=== PATIENT | female | born 1985 | race Caucasian/White ===

== ENCOUNTER 2020-06-06 09:40 | Outpatient (REF) | payer OTHER, SELFPAY | END 2020-06-06 09:41 | disposition home or self-care (01) | LOC: HO.LAB 09:40 | PROVIDERS: Visit Provider Internal Medicine | DX: Z20.828 Contact with and (suspected) exposure to other viral communicable diseases (principal) | CPT/HCPCS: C9803; U0003 ==

== ENCOUNTER 2020-07-17 08:05 | Outpatient (REF) | payer OTHER, SELFPAY ==
[2020-07-17 11:51] LABS: Hematocrit 40.3 % (37-47); Hemoglobin 13.3 g/dl (12.0-16.0); Mean Corpuscular Hemoglobin 29.9 pg (27.0-33.0); Mean Corpuscular Volume 90.6 fL (80-98); Mean Platelet Volume 11.9 fL (9.4-12.3); Platelet Count 178 X10*3/uL (160-400); Red Blood Count 4.45 X10*6/uL (4.20-5.50); Red Cell Distribution Width 13.9 % (11.0-16.0); White Blood Count 6.5 X10*3/uL (4.8-10.8)
[2020-07-17 12:08] LABS: Glucose Urine UA NEG (NEG); Leukocyte Esterase Urine NEG (NEG); Nitrite Urine NEG (NEG); PH 6.5 (5.0-8.0); Urine Blood NEG (NEG); Urine Ketones NEG (NEG); Urine Protein NEG (NEG-TRACE)
[2020-07-17 12:32] LABS: Appearance Urine CLEAR; Color Urine YELLOW
[2020-07-17 12:33] LABS: SARS COV2 IgG Negative (Negative)
[2020-07-17 12:43] LABS: Alanine Aminotransferase 14 U/L (0-31); Albumin Level 4.6 g/dL (3.5-5.0); Alkaline Phosphatase 52 U/L (39-117); Anion Gap 11 (12-20); Aspartate Amino Transferase 12 U/L (5-31); Bilirubin Total 0.3 mg/dL (0.0-1.0); Blood Urea Nitrogen 15 mg/dL (9-16); Calcium 8.8 mg/dL (8.4-10.2); Carbon Dioxide 27 mmol/L (22-29); Chloride 105 mmol/L (96-108); Cholesterol 215 mg/dL; Estimated Glomerular Filt Rate > 60; Glucose Fasting 88 mg/dL (60-99); HDL Cholesterol 66 mg/dL; LDL Cholesterol Calculated 139 mg/dl; Potassium 4.2 mmol/L (3.3-5.1); Sodium 139 mmol/L (135-145); Triglycerides 50 mg/dL
[2020-07-17 13:16] LABS: Bacteria Urine 2+ /LPF; RBC Urine 0 /HPF (0); Squamous Epithelial Cell Urine 3+ /LPF; WBC Urine 0 /HPF (0-4)
== END 2020-07-17 08:06 | disposition home or self-care (01) ==
LOC: HO.HMGCLDS 08:05
PROVIDERS: PCP Internal Medicine; Visit Provider Internal Medicine
DX: Z00.00 Encounter for general adult medical examination without abnormal findings (principal); Z01.84 Encounter for antibody response examination
CPT/HCPCS: 36415; 80053; 80061; 81001; 85027; 86769

== ENCOUNTER 2022-12-27 09:35 | Outpatient (AMB) | payer OTHER, SELFPAY ==
--- NOTE | 2022-12-27 09:37 | A.OFFPC_ITS ---
Vital Signs 12/27/22 09:38 Height 5 ft 7.5 in Weight 143 lb BMI 22.1 BP 106/70 Blood Pressure Location Rt brachial Position Sitting Pulse 74 Pulse Source Pulse Oximeter Pulse Oximetry (%) 98 Oxygen Delivery Method Room Air Intake Visit Reasons: PE - Cervical Cancer Screening due Intake Note: Pt is here today for PE. Allergies No Known Allergies [No Known Allergies*] Allergy (Verified 12/27/22 09:41) Medication List - Last Reconciled 12/27/22 by Annamaria Do MD No Known Home Meds Tobacco use date assessed: 12/27/22 Dental Screening Dental Screen Date: 12/27/22 Did you have a dental visit in the last 12 months?: Yes Did you have a dental problem in the last 6 months where you did not have access to dental care?: No Was dental information given to patient?: Patient has dentist HPI PE - Cervical Cancer Screening due HPI Details Pt presents for PE. [facility] Medical History Annual physical exam History of depression Migraine headache Tobacco dependence Surgical History No pertinent past surgical history Family History (Updated 12/27/22 @ 10:22 by Annamaria Do MD) Father Epilepsy DM type 2 (diabetes mellitus, type 2) Hyperlipidemia Mother No problems noted. Social History (Updated 12/27/22 @ 10:20 by Annamaria Do MD) Household Members Other:: lives with significant other, teenage niece lives together Housing: House Alcohol intake: current Alcohol intake frequency: a few times a month Patient Tobacco Use Status: Current everyday Tobacco user Tobacco use type: Cigarette Cigarettes Per Day: 15 e-Cigarette/Vaping Use: Never Used Current occupational status: employed Cognitive needs: No Hearing needs: No Vision needs: Yes Questionnaire Thrive Questionnaire I am a: Patient What is your living situation today?: I have a steady place to live Within the past 12 months, did the food you bought not last and you didn't have the money to get more?: Never true Within the past 12 months, did you worry whether your food would run out before you got money to buy more?: Never true AUDIT C Alcohol Use Questionnaire (AUDIT-C) 1. How often do you have a drink containing alcohol?: 2-3 times a week 2. How many drinks containing alcohol do you have on a typical day when you are drinking?: 1 or 2 3. How often do you have six or more drinks on one occasion?: Less than monthly Total Score: 4 KANDICE-7 AMB Questionnaire KANDICE-7 Feeling nervous, anxious, or on edge: 1 = Several days Not being able to stop or control worryin = More than half the days Worrying too much about different things: 2 = More than half the days Trouble relaxin = Several days Being so restless that it is hard to sit still: 1 = Several days Becoming easily annoyed or irritable: 1 = Several days Feeling afraid as if something awful might happen: 1 = Several days Total KANDICE-7 score (0-4 normal; 5-9 mild; 10-14 moderate; 15-21 severe): 9 Source: Developed by Drs. Willie Gomez, Thuy Vila, Rafael Campbell and colleagues, with an educational ralf from [employer]. Review of Systems Const All systems reviewed & are unremarkable except as noted in HPI and below Reports no additional complaints Eyes Reports no additional complaints ENT Reports no additional complaints Card Reports no additional complaints Resp Reports no additional complaints GI Reports no additional complaints Reports no additional complaints Physical exam (Primary Care) Vital Signs: Last Vital Signs Pulse 74 12/27/22 09:38 BP 106/70 12/27/22 09:38 Pulse Ox 98 12/27/22 09:38 Oxygen Delivery Method Room Air 12/27/22 09:38 BMI result Body Mass Index 22.1 Tobacco/Smoking Status: Tobacco use Status Tobacco use date assessed 12/27/22 12/27/22 09:43 Patient Tobacco Use Status Current everyday Tobacco 12/27/22 10:20 Tobacco use type Cigarette 12/27/22 10:20 e-Cigarette/Vaping Use Never Used 12/27/22 10:20 Const General: no acute distress HENMT Head: Yes normal to inspection Ears: hearing grossly normal bilaterally General nose exam: Normal external nose present Face and sinus: Yes normal facial exam Throat: Yes posterior oropharynx normal Neck Neck: Yes no lymphadenopathy and Yes supple Chest Breast/axilla inspection: normal inspection of the breasts Breast/axilla palpation: normal palpation of the breasts Resp Effort & Inspection: normal respiratory effort Auscultation: clear to auscultation bilaterally Cardio Rhythm: regular rhythm Heart sounds: S1 normal heart sound present and S2 normal heart sound present GI Inspection: Yes normal to inspection Palpation (GI): Soft to palpation Percussion: Yes normal to percussion Auscultation: normal bowel sounds External Female Exam: normal external appearance Speculum Exam - Vagina: normal appearance of the vagina Speculum Exam - Cervix: normal appearance of the cervix Bimanual exam- vagina & uterus: normal bimanual exam Assessment and Plan Assessment & Plan (1) Annual physical exam: Code(s): Z00.00 - Encounter for general adult medical examination without abnormal findings Plan: WELL-BALANCED AND REGULAR EXERCISE DISCUSSED WITH THE PATIENT. PAP SMEAR WAS DONE TODAY Orders: Orders Comprehensive [place]. Panel Fast Today Z00.00 - Encounter for general adult medical examination without abnormal findings Lipid Panel Today Z00.00 - Encounter for general adult medical examination without abnormal findings TSH reflex Free T4 Today Z00.00 - Encounter for general adult medical examination without abnormal findings Complete Blood Count no Diff Today Z00.00 - Encounter for general adult medical examination without abnormal findings Pap Smear Today Z00.00 - Encounter for general adult medical examination without abnormal findings Coding Level of Care Code Est Pt Prev Care 18-39y(83503) Diagnoses Annual physical exam Z00.00
[2022-12-27 09:38] VITALS: BP 106/70; PULSE 74; O2SAT 98; BMI 22.1
== END 2022-12-27 10:45 | disposition home or self-care (01) ==
PROVIDERS: PCP Internal Medicine; Visit Provider Internal Medicine
DX: Z00.00 Encounter for general adult medical examination without abnormal findings (principal)
CPT/HCPCS: 99395

== ENCOUNTER 2022-12-27 11:00 | Outpatient (REF) | payer OTHER, SELFPAY ==
[2023-01-03 02:48] LABS: HPV mRNA E6/E7 Not Detected (Not Detected)
== END 2022-12-27 11:01 | disposition home or self-care (01) ==
LOC: HO.LNP 11:00
PROVIDERS: Visit Provider Internal Medicine
DX: Z01.419 Encounter for gynecological examination (general) (routine) without abnormal findings (principal)
CPT/HCPCS: 87624; 88142

== ENCOUNTER 2023-01-21 07:34 | Outpatient (REF) | payer OTHER, SELFPAY ==
[2023-01-21 11:24] LABS: Hematocrit 40.4 % (37.0-47.0); Hemoglobin 13.4 g/dl (12.0-16.0); Mean Corpuscular HGB Conc 33.2 g/dl (31.0-35.0); Mean Corpuscular Hemoglobin 30.3 pg (27.0-33.0); Mean Corpuscular Volume 91.4 fL (80.0-98.0); Platelet Count 204 X10*3/uL (160-400); Red Blood Count 4.42 X10*6/uL (4.20-5.50); Red Cell Distribution Width 13.8 % (11.0-16.0); White Blood Count 6.5 X10*3/uL (4.8-10.8)
[2023-01-21 12:07] LABS: Alanine Aminotransferase 10 U/L (0-31); Albumin Level 4.2 g/dL (3.5-5.0); Alkaline Phosphatase 52 U/L (39-117); Anion Gap 9 (12-20); Aspartate Amino Transferase 11 U/L (5-31); Bilirubin Total 0.2 mg/dL (0.0-1.0); Blood Urea Nitrogen 11 mg/dL (9-16); Calcium 8.8 mg/dL (8.4-10.2); Carbon Dioxide 28 mmol/L (22-29); Chloride 107 mmol/L (96-108); Cholesterol 189 mg/dL; Estimated Glomerular Filt Rate > 60; Glucose Fasting 90 mg/dL (60-99); HDL Cholesterol 66 mg/dL; LDL Cholesterol Calculated 114 mg/dl; Potassium 3.9 mmol/L (3.3-5.1); Sodium 140 mmol/L (135-145); Total Protein 6.7 g/dL (6.5-8.0); Triglycerides 48 mg/dL
== END 2023-01-21 07:35 | disposition home or self-care (01) ==
LOC: HO.HMGCLDS 07:34
PROVIDERS: PCP Internal Medicine; Visit Provider Internal Medicine
DX: Z00.00 Encounter for general adult medical examination without abnormal findings (principal)
CPT/HCPCS: 36415; 80053; 80061; 84443; 85027

== ENCOUNTER 2023-12-30 11:23 | Outpatient (AMB) | payer OTHER, SELFPAY ==
[2023-12-30 11:35] VITALS: BP 108/74; PULSE 66; O2SAT 100; BMI 23.3
--- NOTE | 2023-12-30 11:35 | A.OFFPC_ITS ---
Vital Signs 12/30/23 11:35 Height 5 ft 7 in Weight 149 lb BMI 23.3 BP 108/74 Blood Pressure Location Lt brachial Position Sitting Pulse 66 Pulse Source Pulse Oximeter Pulse Oximetry (%) 100 Oxygen Delivery Method Room Air Intake Visit Reasons: PE Intake Note: Pt is here today for PE. Allergies No Known Allergies [No Known Allergies*] Allergy (Verified 12/30/23 11:36) Medication List - Last Reconciled 12/30/23 by Annamaria Do MD No Known Home Meds Tobacco use date assessed: 12/30/23 Dental Screening Dental Screen Date: 12/30/23 Did you have a dental visit in the last 12 months?: Yes Did you have a dental problem in the last 6 months where you did not have access to dental care?: No Was dental information given to patient?: Patient has dentist HPI PE HPI Details Pt presents for PE. [facility] Medical History Tobacco dependence Annual physical exam History of depression Migraine headache Surgical History No pertinent past surgical history Family History Father Epilepsy DM type 2 (diabetes mellitus, type 2) Hyperlipidemia Mother No problems noted. Social History Household Members Other:: lives with significant other, teenage niece lives together Housing: House Alcohol intake: current Alcohol intake frequency: a few times a month Patient Tobacco Use Status: Current everyday Tobacco user Tobacco use type: Cigarette Cigarettes Per Day: 10 e-Cigarette/Vaping Use: Never Used service: No Current occupational status: employed Cognitive needs: No Hearing needs: No Vision needs: Yes Questionnaire PHQ-9 Over the last 2 weeks, how often have you been bothered by any of the following problems? 1. Little interest or pleasure in doing things: not at all 2. Feeling down, depressed, or hopeless: not at all 3. Trouble falling or staying asleep, or sleeping too much: not at all 4. Feeling tired or having little energy: not at all 5. Poor appetite or overeating: not at all 6. Feeling bad about yourself - or that you are a failure or have let yourself or your family down: not at all 7. Trouble concentrating on things, such as reading the newspaper or watching television: not at all 8. Moving or speaking so slowly that other people could have noticed. Or the opposite - being so fidgety or restless that you have been moving around a lot more than usual: not at all 9. Thoughts that you would be better off or of hurting yourself in some way: not at all Total score: 0 Depression Screening Interpretation: Negative Depression Screening Done: Yes Source: Developed by Drs. Willie Gomez, Thuy Vila, Rafael Campbell and colleagues, with an educational ralf from [employer]. Thrive Questionnaire Date Thrive assessed: 12/30/23 I am a: Patient What is your living situation today?: I have a steady place to live Within the past 12 months, did the food you bought not last and you didn't have the money to get more?: Never true Within the past 12 months, did you worry whether your food would run out before you got money to buy more?: Never true Do you have trouble paying for medicines?: No Do you have trouble getting transportation to medical appointments?: No Do you have trouble paying your heating and electricity bill?: No Do you have trouble taking care of your child, family member or friend?: No Do you have trouble with day-to-day activities such as bathing, preparing meals, shopping, managing finances, etc.?: No Are you currently unemployed and looking for a job?: No Are you interested in more education?: No Please select the resources that you would like help with: Housing/Detention Currently or been in a relationship where the following occur: No concerns reported THRIVE Score: 0 AUDIT C Alcohol Use Questionnaire (AUDIT-C) 1. How often do you have a drink containing alcohol?: 2-4 times a month 2. How many drinks containing alcohol do you have on a typical day when you are drinking?: 3 or 4 3. How often do you have six or more drinks on one occasion?: Less than monthly Total Score: 4 KANDICE-7 AMB Questionnaire KANDICE-7 Date KANDICE - 7 assessed: 12/30/23 Feeling nervous, anxious, or on edge: 0 = Not at all Not being able to stop or control worryin = Not at all Worrying too much about different things: 0 = Not at all Trouble relaxin = Not at all Being so restless that it is hard to sit still: 0 = Not at all Becoming easily annoyed or irritable: 0 = Not at all Feeling afraid as if something awful might happen: 0 = Not at all Total KANDICE-7 score (0-4 normal; 5-9 mild; 10-14 moderate; 15-21 severe): 0 Source: Developed by Drs. Willie Gomez, Thuy Vila, Rafael Campbell and colleagues, with an educational ralf from [employer]. KANDICE-7 Assessment Billing KANDICE-7 Assessment Tool: KANDICE-7 Assessment 66107 Review of Systems Const All systems reviewed & are unremarkable except as noted in HPI and below Reports no additional complaints Eyes Reports no additional complaints ENT Reports no additional complaints Card Reports no additional complaints Resp Reports no additional complaints GI Reports no additional complaints Reports no additional complaints Physical exam (Primary Care) Vital Signs: Last Vital Signs Pulse 66 12/30/23 11:35 BP 108/74 12/30/23 11:35 Pulse Ox 100 12/30/23 11:35 Oxygen Delivery Method Room Air 12/30/23 11:35 BMI result Body Mass Index 23.3 Tobacco/Smoking Status: Tobacco use Status Tobacco use date assessed 12/30/23 12/30/23 11:42 Patient Tobacco Use Status Current everyday Tobacco 12/30/23 11:36 Tobacco use type Cigarette 12/30/23 11:36 e-Cigarette/Vaping Use Never Used 12/30/23 11:36 PHQ-9: PHQ-9 Score PHQ-9: Total score 0 12/30/23 11:42 Depression Screening Interpretation: Negative Thrive Assessment: Date of Thrive Assessment Date Thrive assessed 12/30/23 12/30/23 11:42 Currently or been in a relationship where the following occur: No concerns reported Const General: no acute distress HENMT Head: Yes normal to inspection Ears: hearing grossly normal bilaterally Face and sinus: Yes normal facial exam Throat: Yes posterior oropharynx normal Eyes General: appearance normal, both eyes and all related structures Neck Neck: Yes no lymphadenopathy and Yes supple Resp Effort & Inspection: normal respiratory effort Auscultation: clear to auscultation bilaterally Cardio Rhythm: regular rhythm Heart sounds: S1 normal heart sound present and S2 normal heart sound present GI Inspection: Yes normal to inspection Palpation (GI): Soft to palpation Percussion: Yes normal to percussion Auscultation: normal bowel sounds Assessment and Plan Assessment & Plan (1) Annual physical exam: Code(s): Z00.00 - Encounter for general adult medical examination without abnormal findings Plan: well balanced diet, regular exercise, fasting labs (2) Tobacco dependence: Code(s): F17.200 - Nicotine dependence, unspecified, uncomplicated Plan: tobacco quitting Orders: Orders Comprehensive [place]. Panel Fast Today Z00.00 - Encounter for general adult medical examination without abnormal findings Complete Blood Count Auto Diff Today Z00.00 - Encounter for general adult medical examination without abnormal findings Lipid Panel Today Z00.00 - Encounter for general adult medical examination without abnormal findings Coding Level of Care Code Est Pt Prev Care 18-39y(31163) Diagnoses Annual physical exam Z00.00 Tobacco dependence F17.200 Additional Codes KANDICE-7 Assessment Billing - KANDICE-7 Assessment Tool: KANDICE-7 Assessment [id number] ([id number])
== END 2023-12-30 12:09 | disposition home or self-care (01) ==
PROVIDERS: PCP Internal Medicine; Visit Provider Internal Medicine
DX: Z00.00 Encounter for general adult medical examination without abnormal findings (principal); F17.210 Nicotine dependence, cigarettes, uncomplicated
CPT/HCPCS: 99395

== ENCOUNTER 2024-01-08 11:18 | Outpatient (AMB) | payer OTHER, SELFPAY ==
[2024-01-08 11:21] VITALS: BP 118/72; PULSE 86; O2SAT 98; BMI 23.3
--- NOTE | 2024-01-08 11:21 | MHC.PC.OV ---
Vital Signs 01/08/24 11:21 Height 5 ft 7 in Weight 149 lb BMI 23.3 BP 118/72 Blood Pressure Location Lt brachial Position Sitting Pulse 86 Pulse Source Pulse Oximeter Pulse Oximetry (%) 98 Oxygen Delivery Method Room Air Intake Visit Reasons: Foot pain Intake Note: Pt is here today for a sick visit. Pt c/o pain and swelling in her L foot since Friday. Allergies No Known Allergies [No Known Allergies*] Allergy (Verified 01/08/24 11:21) Medication List - Last Reconciled 01/08/24 by Annamaria Do MD meloxicam 15 mg PO DAILY Tobacco use date assessed: 01/08/24 Dental Screening Dental Screen Date: 12/30/23 HPI Foot pain HPI Details Patient complains of left foot pain and swelling for the last 3 days getting worse after walking and standing at work last night. Patient does not recall injury but may had hit it against the bed frame 3 days ago. [facility] Medical History Tobacco dependence Annual physical exam History of depression Migraine headache Surgical History (Updated 01/08/24 @ 11:24 by Marilee Martinez [facility]) Hx of removal of cyst Family History Father Epilepsy DM type 2 (diabetes mellitus, type 2) Hyperlipidemia Mother No problems noted. Social History Household Members Other:: lives with significant other, teenage niece lives together Housing: House Alcohol intake: current Alcohol intake frequency: a few times a month Patient Tobacco Use Status: Current everyday Tobacco user Tobacco use type: Cigarette Cigarettes Per Day: 10 e-Cigarette/Vaping Use: Never Used service: No Current occupational status: employed Cognitive needs: No Hearing needs: No Vision needs: Yes Questionnaire PHQ-9 Over the last 2 weeks, how often have you been bothered by any of the following problems? 1. Little interest or pleasure in doing things: not at all 2. Feeling down, depressed, or hopeless: not at all 3. Trouble falling or staying asleep, or sleeping too much: not at all 4. Feeling tired or having little energy: not at all 5. Poor appetite or overeating: not at all 6. Feeling bad about yourself - or that you are a failure or have let yourself or your family down: not at all 7. Trouble concentrating on things, such as reading the newspaper or watching television: not at all 8. Moving or speaking so slowly that other people could have noticed. Or the opposite - being so fidgety or restless that you have been moving around a lot more than usual: not at all 9. Thoughts that you would be better off or of hurting yourself in some way: not at all Total score: 0 Depression Screening Interpretation: Negative Depression Screening Done: Yes Source: Developed by Drs. Willie Gomez, Thuy Vila, Rafael Campbell and colleagues, with an educational ralf from [employer]. Thrive Questionnaire Date Thrive assessed: 01/08/24 I am a: Patient What is your living situation today?: I have a steady place to live Within the past 12 months, did the food you bought not last and you didn't have the money to get more?: Never true Within the past 12 months, did you worry whether your food would run out before you got money to buy more?: Never true Do you have trouble paying for medicines?: No Do you have trouble getting transportation to medical appointments?: No Do you have trouble paying your heating and electricity bill?: No Do you have trouble taking care of your child, family member or friend?: No Do you have trouble with day-to-day activities such as bathing, preparing meals, shopping, managing finances, etc.?: No Are you currently unemployed and looking for a job?: No Are you interested in more education?: No Please select the resources that you would like help with: Housing/Assisted Currently or been in a relationship where the following occur: No concerns reported THRIVE Score: 0 AUDIT C Alcohol Use Questionnaire (AUDIT-C) 1. How often do you have a drink containing alcohol?: 2-4 times a month 2. How many drinks containing alcohol do you have on a typical day when you are drinking?: 3 or 4 3. How often do you have six or more drinks on one occasion?: Less than monthly Total Score: 4 KANDICE-7 AMB Questionnaire KANDICE-7 Date KANDICE - 7 assessed: 08/01/24 Feeling nervous, anxious, or on edge: 0 = Not at all Not being able to stop or control worryin = Not at all Worrying too much about different things: 0 = Not at all Trouble relaxin = Not at all Being so restless that it is hard to sit still: 0 = Not at all Becoming easily annoyed or irritable: 0 = Not at all Feeling afraid as if something awful might happen: 0 = Not at all Total KANDICE-7 score (0-4 normal; 5-9 mild; 10-14 moderate; 15-21 severe): 0 Source: Developed by Drs. Willie Gomez, Thuy Vila, Rafael Campbell and colleagues, with an educational ralf from [employer]. Review of Systems Const All systems reviewed & are unremarkable except as noted in HPI and below ENT Reports no additional complaints Card Reports no additional complaints Resp Reports no additional complaints GI Reports no additional complaints Physical exam (Primary Care) Vital Signs: Last Vital Signs Pulse 86 01/08/24 11:21 BP 118/72 01/08/24 11:21 Pulse Ox 98 01/08/24 11:21 Oxygen Delivery Method Room Air 01/08/24 11:21 BMI result Body Mass Index 23.3 Tobacco/Smoking Status: Tobacco use Status Tobacco use date assessed 01/08/24 01/08/24 11:26 Patient Tobacco Use Status Current everyday Tobacco 01/08/24 11:26 Tobacco use type Cigarette 01/08/24 11:26 e-Cigarette/Vaping Use Never Used 01/08/24 11:26 PHQ-9: PHQ-9 Score PHQ-9: Total score 0 01/08/24 11:26 Depression Screening Interpretation: Negative Thrive Assessment: Date of Thrive Assessment Date Thrive assessed 01/08/24 01/08/24 11:26 Currently or been in a relationship where the following occur: No concerns reported Const General: no acute distress Resp Effort & Inspection: normal respiratory effort Auscultation: clear to auscultation bilaterally Cardio Heart sounds: S1 normal heart sound present and S2 normal heart sound present Extrem Other: There is reproducible tenderness over left lateral afshin,t 2+ pitting edema no erythema or warmth. Left ankle with full range of motion and no tenderness Assessment and Plan Assessment & Plan (1) Foot pain, left: Code(s): M79.672 - Pain in left foot Plan: Check x-ray to rule out fracture meloxicam as prescribed and patient was advised to elevate and ice left foot follow-up as needed Orders: Orders XR foot LT min 3V Today M79.672 - Pain in left foot Medications: New meloxicam 15 mg PO DAILY 10 tabs 0RF Coding Level of Care Code Est Pt Level 3 (00365) Diagnoses Foot pain, left M79.672
== END 2024-01-08 12:03 | disposition home or self-care (01) ==
PROVIDERS: PCP Internal Medicine; Visit Provider Internal Medicine
DX: M79.672 Pain in left foot (principal)
CPT/HCPCS: 99213

== ENCOUNTER 2024-01-08 11:56 | Outpatient (REF) | payer OTHER, SELFPAY ==
--- NOTE | ~2024-01-08 | XR_ITS ---
EXAMINATION: XR FOOT, LEFT CLINICAL INFORMATION: Pain. COMPARISON: None available. TECHNIQUE: AP, lateral, and oblique views of the left foot. FINDINGS: The bones and soft tissues are normal. No fracture. Alignment is anatomic. Joint spaces are maintained. XR/XR foot LT min 3V IMPRESSION: Normal left foot. Electronically signed by: Joao Coe MD 02/02/2024 05:09 PM EDT RP
== END 2024-01-08 11:57 | disposition home or self-care (01) ==
LOC: HO.HMGCX 11:56
PROVIDERS: PCP Internal Medicine; Visit Provider Internal Medicine
DX: M79.672 Pain in left foot (principal)
CPT/HCPCS: 73630

== ENCOUNTER 2024-01-09 08:15 | Outpatient (REF) | payer OTHER, SELFPAY ==
[2024-01-09 10:06] LABS: MANUAL DIFF FLAG NO
[2024-01-09 10:19] LABS: Basophils Percent Auto 0.5 % (0-2); Eosinophils Absolute Auto 0.1 X10*3/uL (0.0-0.4); Eosinophils Percent Auto 1.6 % (0-4); Hematocrit 40.3 % (37.0-47.0); Hemoglobin 13.5 g/dl (12.0-16.0); Imm Gran Abs Auto 0.02 X10*3/uL (0.00-0.03); Imm Gran Pct Auto 0.3 % (0.0-0.4); Lymphocytes Percent Auto 31.8 % (20-40); Mean Corpuscular HGB Conc 33.5 g/dl (31.0-35.0); Mean Corpuscular Hemoglobin 30.3 pg (27.0-33.0); Mean Corpuscular Volume 90.4 fL (80.0-98.0); Mean Platelet Volume 12.3 fL (9.4-12.3); Monocytes Absolute Auto 0.6 X10*3/uL (0.1-1.2); Monocytes Percent Auto 9.6 % (2-11); Neutrophils Absolute Auto 3.5 x10*3/uL (2.0-8.3); Neutrophils Percent Auto 56.2 % (45-73); Platelet Count 182 X10*3/uL (160-400); Red Blood Count 4.46 X10*6/uL (4.20-5.50); Red Cell Distribution Width 13.6 % (11.0-16.0); White Blood Count 6.2 X10*3/uL (4.8-10.8)
[2024-01-09 10:41] LABS: Alanine Aminotransferase 12 U/L (0-31); Albumin Level 4.3 g/dL (3.5-5.0); Alkaline Phosphatase 55 U/L (39-117); Anion Gap 11 (12-20); Aspartate Amino Transferase 12 U/L (5-31); Bilirubin Total 0.3 mg/dL (0.0-1.0); Blood Urea Nitrogen 12 mg/dL (9-16); Calcium 9.4 mg/dL (8.4-10.2); Carbon Dioxide 28 mmol/L (22-29); Chloride 106 mmol/L (96-108); Cholesterol 189 mg/dL (<200); Estimated Glomerular Filt Rate > 60; Glucose Fasting 94 mg/dL (60-99); HDL Cholesterol 68 mg/dL (>40); LDL Cholesterol Calculated 112 mg/dL (<100); Potassium 3.8 mmol/L (3.3-5.1); Sodium 141 mmol/L (135-145); Total Protein 6.9 g/dL (6.5-8.0); Triglycerides 49 mg/dL (<150)
== END 2024-01-09 08:16 | disposition home or self-care (01) ==
LOC: HO.HMGCLDS 08:15
PROVIDERS: PCP Internal Medicine; Visit Provider Internal Medicine
DX: Z00.00 Encounter for general adult medical examination without abnormal findings (principal)
CPT/HCPCS: 36415; 80053; 80061; 85025

== ENCOUNTER 2024-07-08 08:49 | Outpatient (AMB) | payer OTHER, SELFPAY ==
--- NOTE | 2024-07-08 08:58 | AM.OFFWIN_ITS ---
Intake Vital Signs 07/08/24 08:59 Weight 146 lb BP 100/62 Blood Pressure Location Rt brachial Position Sitting Pulse 74 Pulse Source Pulse Oximeter Temp 98.1 F Temp Source Oral Pulse Oximetry (%) 99 Oxygen Delivery Method Room Air Intake Visit Reasons: [employer] ? sinus infection Intake Note: Patient here for head congestion, bilat ear discomfort and sinus pressure that has been present for a few weeks. Patient Tobacco Use Status: Current everyday Tobacco user Allergies No Known Allergies [No Known Allergies*] Allergy (Verified 07/08/24 08:59) Do you need a note to return to daycare/school/sports/work: No HPI HPI Comments History of Present Illness Details 38 y/o female patient who presents to [facility] walk in clinic with c/o URI symptoms since Friday. [facility] Medical History (Updated 07/08/24 @ 09:38 by Karen Keller NP) Acute respiratory disease Tobacco dependence Annual physical exam History of depression Migraine headache Surgical History (Updated 01/08/24 @ 11:[address] [facility]) Hx of removal of cyst Family History Father Epilepsy DM type 2 (diabetes mellitus, type 2) Hyperlipidemia Mother No problems noted. Social History Household Members Other:: lives with significant other, teenage niece lives together Housing: House Alcohol intake: current Alcohol intake frequency: a few times a month Patient Tobacco Use Status: Current everyday Tobacco user Tobacco use type: Cigarette Cigarettes Per Day: 10 e-Cigarette/Vaping Use: Never Used service: No Current occupational status: employed Cognitive needs: No Hearing needs: No Vision needs: Yes Review of Systems Const All systems reviewed & are unremarkable except as noted in HPI and below Physical Exam Vital Signs: Last Vital Signs Temp 98.1 F 07/08/24 08:59 Pulse 74 07/08/24 08:59 BP 100/62 07/08/24 08:59 Pulse Ox 99 07/08/24 08:59 Oxygen Delivery Method Room Air 07/08/24 08:59 Const General: cooperative, comfortable and no acute distress Orientation/consciousness: patient oriented x3 HEENT Head: Yes normocephalic Ears: external ears normal and TM abnormal bulging and with fluid behind the TM General nose exam: Abnormal mucous membranes and turbinates present erythematous Face and sinus: Yes sinuses nontender Mouth: moist mucous membranes Resp Effort & Inspection: normal respiratory effort and able to speak in complete sentences Auscultation: clear to auscultation bilaterally Cardio Heart sounds: S1 normal heart sound present and S2 normal heart sound present Neuro General: patient oriented x3 Assessment & Plan Assessment & Plan (1) Acute respiratory disease: Code(s): J06.9 - Acute upper respiratory infection, unspecified Plan: Ordered SARs OTC cold and flu remedies. Ordered Zpack. Orders: Orders SARS-CoV2/FLU/RSV Today R09.89 - Other specified symptoms and signs involving the circulatory and respiratory systems Medications: New azithromycin 500 mg PO DAILY 3 days 3 tabs 0RF J06.9 - Acute upper respiratory infection, unspecified Coding Level of Care Code New Pt Level 3 (63791) Diagnoses Acute respiratory disease J06.9 Time Spent (min) 15
[2024-07-08 08:59] VITALS: BP 100/62; PULSE 74; TEMP 36.7; O2SAT 99
--- OUTSIDE RECORDS SUMMARY | 2024-07-08 11:38 | XMS_ITS | Patient Health Record ---
Author Organization [facility] [address]ai [address] [place] Address [address] [place] [address] Care Team Providers Care Rn Telehealth Name Role Phone Annamaria Do MD Primary Care Provider Unavaila Lanie Friedmane Unavailable [phone] Reason For Referral No Information Medications Medication SIG (Take, Route, Frequency, Duration) Notes Start Date End Date Status Gabapentin 300 MG 1 capsule Orally at bedtime for 30 day(s) 02/07/2020 Not-Taking Acetaminophen Extra Strength 500 MG 1 tablet as needed Orally every 6 hrs for 14 days 02/07/2020 Not-Taking Pneumatic Compression Boot 30mm Hg as directed over swollen feet and legs as directed for . 02/28/2020 Not-Taking Crutches . . Use Daily for 2-4 weeks 02/07/2020 Not-Taking Ibuprofen 800 MG 1 tablet with food o r milk as needed Orally Three times a day for 14 days PRN 02/07/2020 Active Social History Tobacco Use: Social History Observation Description Date Details (start date - stop date) Current Smoker NA - NA Tobacco Use/Smoking Question Answer Notes Are you a: current smoker When did you start smoking? 2004 How often do you smoke cigarettes? every day How many cigarettes a day do you smoke? 11-20 Additional Findings: Tobacco Non-User Current no n-smoker Alcohol Screen Question Answer Notes Did you have a drink contain ing alcohol in the past year? Yes How often did you have a dri nk containing alcohol in the past year? 2 to 3 times a week (3 points) Points 3 Interpretation Positive Tobacco use other than smoking: Question Answer Notes Are you an other tobacco user? No Problems Problem Type SNOMED Code ICD Code Onset Dates Problem Status W/U Status Risk Notes Problem Acquired hammer toe of right foot (8384271652517 105) Other hammer toe(s) (acquired), right foot (M20.41) Active confirmed Problem Acquired hammer toe of left foot (2511740261223 103) Other hammer toe(s) (acquired), left foot (M20.42) Active confirmed Encounters Encounter Location Date Provider Diagnosis [facility] [address] [place] [address] 04/01/2024 Rema Blanton Plan Of Treatment Pending Test Test Name Order Date - Ganglion Cyst Injection/Aspiratio n 11/18/2019- Ganglion Cyst Injection/Aspiratio n 12/06/2019 Insurance Providers Payer Name Payer Address Payer Phone Subscriber Number Group Number Insured Name Patient Relationship to Insured Coverage Start Date Coverage End Date [facility] [address] [place] [address] [id number] Yarely Fishman Self - patient is the insured Medical (General) History Medical History History ICD Code Broken bones Chicken pox Surgical History Surgery Date(Month/Year) cyst removal/Ostectomy left foot 0
--- OUTSIDE RECORDS SUMMARY | 2024-07-08 11:38 | XMS_ITS ---
Author Organization [facility] Address [address] [place] [address] Care Team Providers Care Child Care Worker Name Role Phone Annamaria Do MD Primary Care Provider Unavaila hunter Black, Rema Unavailable [phone] REASON FOR VISIT Cancel Encounters Encounter Location Date Provider Diagnosis [facility] [address] [place] [address] 04/01/2024 Rema Black Plan Of Treatment No Information Progress Notes * SUZYModestoTylerOB:1985 (38 yo F)Acc No.[id number]:04/01/2024 Patient:?Yarely Fishman :1985???Age:38 Y???Sex:Female Address:[address] [place] [address], [address] * true * Date:? Generated for Sariahi carolyn/Hanane/eTransmitting on:?07/08/2024 11:38 AM EST
--- OUTSIDE RECORDS SUMMARY | 2024-07-08 11:38 | XMS_ITS ---
Author Organization [facility] Address [address] [facility] [place] [address] Care Team Providers Care Cotton Chopper Name Role Phone Ernestina DICKERSON, Annamaria Primary Care Provider Unavaila Rema Friedman [phone] Encounters Encounter Location Date Provider Diagnosis [address] [address] 04/09/2024 Rema Blanton Plan Of Treatment No Information Progress Notes * [place] ALMONTEleDOB:1985 (38 yo F)Acc No.[id number]:04/09/2024 Progress Notes Patient:Yarely CHACKO Provider:?Rema Blanton DPM :1985???Age:38 Y???Sex:Female D ate:04/09/2024 Address:[address] [place], [place] [id number] Pcp:Annamaria Do MD Subjective: * Chief Complaints: * ??? * Medical History:? Objective: * Vitals:? Assessment: Plan: * Treatment: * Images: * The named appointment provid er may or may not be the originator of this progress note, and it is not deemed complete until electronically signed by the appointment provider. Sign off status: Pending * Provider:?Rema Blanton DPM Date:?2023 Generated for Tami leon/Hanane/eTransmitting on:?07/08/2024 11:38 AM EST
== END 2024-07-08 09:41 | disposition home or self-care (01) ==
PROVIDERS: PCP Internal Medicine; Visit Provider Nurse Practitioner Family
DX: J06.9 Acute upper respiratory infection, unspecified (principal)

== ENCOUNTER 2024-07-08 08:49 | Outpatient (REF) | payer OTHER, SELFPAY ==
[2024-07-08 16:27] LABS: Influenza A PCR NEGATIVE (Negative); Influenza B PCR NEGATIVE (Negative); Resp Syncy Virus RNA Qual PCR NEGATIVE (Negative); SARS COV2 PCR INHOUSE NEGATIVE (Negative)
== END 2024-07-08 08:50 | disposition home or self-care (01) ==
LOC: HO.LAB 08:49
PROVIDERS: PCP Internal Medicine; Visit Provider Nurse Practitioner Family
DX: J06.9 Acute upper respiratory infection, unspecified (principal); R09.89 Other specified symptoms and signs involving the circulatory and respiratory systems
CPT/HCPCS: 0241U

== ENCOUNTER 2025-01-06 13:30 | Outpatient (AMB) | payer OTHER, SELFPAY ==
[2025-01-06 13:31] VITALS: BP 102/68; PULSE 77; TEMP 36.7; O2SAT 100; BMI 23.5
--- NOTE | 2025-01-06 13:31 | A.OFFPC_ITS ---
Vital Signs 01/06/25 13:31 Height 5 ft 7 in Weight 150 lb BMI 23.5 BP 102/68 Blood Pressure Location Rt brachial Position Sitting Pulse 77 Pulse Source Pulse Oximeter Temp 98.1 F Temp Source Oral Pulse Oximetry (%) 100 Oxygen Delivery Method Room Air Intake Visit Reasons: PE Intake Note: Pt is here today for PE. Allergies No Known Allergies (No Known Allergies*) Allergy (Verified 01/06/25 13:32) Medication List - Last Reconciled 01/06/25 by Annamaria Do MD No Known Home Meds Tobacco use date assessed: 01/06/25 Dental Screening Dental Screen Date: 01/06/25 Did you have a dental visit in the last 12 months?: Yes Did you have a dental problem in the last 6 months where you did not have access to dental care?: No Was dental information given to patient?: Patient has dentist HPI PE HPI Details Pt presents for PE. 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 The pain is worse when patient is reaching overhead or sleeping on the right side. [facility] Medical History (Updated 01/06/25 @ 14:09 by Annamaria Do MD) Acute respiratory disease Tobacco dependence Annual physical exam History of depression Migraine headache Surgical History Hx of removal of cyst Family History Father Epilepsy DM type 2 (diabetes mellitus, type 2) Hyperlipidemia Mother No problems noted. Social History Household Members Other:: lives with significant other, teenage niece lives together Housing: House Alcohol intake: current Alcohol intake frequency: a few times a month Patient Tobacco Use Status: Current everyday Tobacco user Tobacco use type: Cigarette Cigarettes Per Day: 10 e-Cigarette/Vaping Use: Never Used service: No Current occupational status: employed Cognitive needs: No Hearing needs: No Vision needs: Yes Questionnaire PHQ-9 Over the last 2 weeks, how often have you been bothered by any of the following problems? 1. Little interest or pleasure in doing things: not at all 2. Feeling down, depressed, or hopeless: not at all 3. Trouble falling or staying asleep, or sleeping too much: not at all 4. Feeling tired or having little energy: not at all 5. Poor appetite or overeating: not at all 6. Feeling bad about yourself - or that you are a failure or have let yourself or your family down: not at all 7. Trouble concentrating on things, such as reading the newspaper or watching television: not at all 8. Moving or speaking so slowly that other people could have noticed. Or the opposite - being so fidgety or restless that you have been moving around a lot more than usual: not at all 9. Thoughts that you would be better off or of hurting yourself in some way: not at all Total score: 0 Depression Screening Interpretation: Negative Depression Screening Done: Yes 20042 - PHQ-9 Billing: Yes Source: Developed by Drs. Willie Gomez, Thuy Vila, Rafael Campbell and colleagues, with an educational ralf from [employer]. Thrive Questionnaire Date Thrive assessed: 01/03/25 I am a: Patient What is your living situation today?: I have a steady place to live Within the past 12 months, did the food you bought not last and you didn't have the money to get more?: Never true Within the past 12 months, did you worry whether your food would run out before you got money to buy more?: Never true Do you have trouble paying for medicines?: No Do you have trouble getting transportation to medical appointments?: No Do you have trouble paying your heating and electricity bill?: No Do you have trouble taking care of your child, family member or friend?: No Do you have trouble with day-to-day activities such as bathing, preparing meals, shopping, managing finances, etc.?: No Are you currently unemployed and looking for a job?: No Are you interested in more education?: No Please select the resources that you would like help with: None Currently or been in a relationship where the following occur: No concerns reported THRIVE Score: 0 AUDIT C Alcohol Use Questionnaire (AUDIT-C) 1. How often do you have a drink containing alcohol?: 2-4 times a month 2. How many drinks containing alcohol do you have on a typical day when you are drinking?: 1 or 2 3. How often do you have six or more drinks on one occasion?: Less than monthly Total Score: 3 KANDICE-7 AMB Questionnaire KANDICE-7 Date KANDICE - 7 assessed: 01/08/24 Feeling nervous, anxious, or on edge: 0 = Not at all Not being able to stop or control worryin = Not at all Worrying too much about different things: 0 = Not at all Trouble relaxin = Not at all Being so restless that it is hard to sit still: 0 = Not at all Becoming easily annoyed or irritable: 0 = Not at all Feeling afraid as if something awful might happen: 0 = Not at all Total KANDICE-7 score (0-4 normal; 5-9 mild; 10-14 moderate; 15-21 severe): 0 Source: Developed by Drs. Willie Gomez, Thuy Vila, Rafael Campbell and colleagues, with an educational ralf from [employer]. Review of Systems Const All systems reviewed & are unremarkable except as noted in HPI and below Eyes Reports no additional complaints ENT Reports no additional complaints Card Reports no additional complaints Resp Reports no additional complaints GI Reports no additional complaints Reports no additional complaints Physical exam (Primary Care) Vital Signs: Last Vital Signs Temp 98.1 F 01/06/25 13:31 Pulse 77 01/06/25 13:31 BP 102/68 01/06/25 13:31 Pulse Ox 100 01/06/25 13:31 Oxygen Delivery Method Room Air 01/06/25 13:31 BMI result Body Mass Index 23.5 Tobacco/Smoking Status: Tobacco use Status Tobacco use date assessed 01/06/25 01/06/25 13:37 Patient Tobacco Use Status Current everyday Tobacco 01/06/25 13:37 Tobacco use type Cigarette 01/06/25 13:37 e-Cigarette/Vaping Use Never Used 01/06/25 13:37 PHQ-9: PHQ-9 Score PHQ-9: Total score 0 01/06/25 13:37 Depression Screening Interpretation: Negative Thrive Assessment: Date of Thrive Assessment Date Thrive assessed 01/03/25 01/06/25 13:37 Currently or been in a relationship where the following occur: No concerns reported Const General: no acute distress HENMT Head: Yes normal to inspection Ears: TM's normal bilaterally Face and sinus: Yes normal facial exam Mouth: Normal oral and palatal mucosa present Eyes General: appearance normal, both eyes and all related structures Neck Neck: Yes no lymphadenopathy and Yes supple Resp Effort & Inspection: normal respiratory effort Auscultation: clear to auscultation bilaterally Cardio Rhythm: regular rhythm Heart sounds: S1 normal heart sound present and S2 normal heart sound present GI Inspection: Yes normal to inspection Palpation (GI): Soft to palpation Percussion: Yes normal to percussion Auscultation: normal bowel sounds Extrem Other: This is slightly decreased range of motion in the right shoulder , no joint tenderness erythema warmth Coding Level of Care Code Est Pt Prev Care 18-39y(86364) Diagnoses Shoulder pain, right M25.511 Annual physical exam Z00. Additional Codes PHQ-9 - 85323 - PHQ-9 Billing: Yes ([id number]) Assessment & Plan Assessment & Plan (1) Shoulder pain, right: Code(s): M25.511 - Pain in right shoulder Category: Medical Plan: Referred to physical therapy (2) Annual physical exam: Code(s): Z00.00 - Encounter for general adult medical examination without abnormal findings Category: Medical Plan: Well-balanced diet regular physical activity discussed with the patient she will schedule appointment with a financial aid coordinator. Patient will return for fasting blood work. Tobacco quitting discussed with the patient Orders: Orders Complete Blood Count Auto Diff Today R53.83 - Other fatigue, Z00.00 - Encounter for general adult medical examination without abnormal findings UA w Microscopic Today R53.83 - Other fatigue, Z00.00 - Encounter for general adult medical examination without abnormal findings PT Evaluation and Treatment Today M25.511 - Pain in right shoulder IRON PROFILE Today R53.83 - Other fatigue, Z00.00 - Encounter for general adult medical examination without abnormal findings Comprehensive [place]. Panel Fast Today R53.83 - Other fatigue, Z00.00 - Encounter for general adult medical examination without abnormal findings TSH reflex Free T4 Today R53.83 - Other fatigue, Z00.00 - Encounter for general adult medical examination without abnormal findings Lipid Panel Today R53.83 - Other fatigue, Z00.00 - Encounter for general adult medical examination without abnormal findings
--- OUTSIDE RECORDS SUMMARY | 2025-01-06 13:43 | XMS_ITS | Patient Health Record ---
Author Organization [facility] Jai [address] [place] Address [address] [place] [address] Care Team Providers Care Photo Optics Technician Name Role Phone Annamaria Do MD Primary Care Provider Unavaila Rema Friedman Unavailable [phone] Reason For Referral No Information Medications Medication SIG (Take, Route, Frequency, Duration) Notes Start Date End Date Status Gabapentin 300 MG 1 capsule Orally at bedtime; Duration: 30 day(s) 02/07/2020 Not-Taking Acetaminophen Extra Strength 500 MG 1 tablet as needed Orally every 6 hrs; Duration: 14 days 02/07/2020 Not-Taking Pneumatic Compression Boot 30mm Hg as directed over swollen feet and legs as directed; Duration: . 02/28/2020 Not-Taking Crutches . . Use Daily; Duratio n: 2-4 weeks 02/07/2020 Not-Taking Ibuprofen 800 MG 1 tablet with food o r milk as needed Orally Three times a day; Duration: 14 days PRN 02/07/2020 Active Social History Tobacco Use: Social History Observation Description Date Details (start date - stop date) Current Smoker NA - NA Tobacco Use/Smoking Question Answer Notes Are you a: current smoker When did you start smoking? 2003 How often do you smoke cigarettes? every [...] Problem Acquired hammer toe of right foot (0697331416384 105) Other hammer toe(s) (acquired), right foot (M20.41) Active confirmed Problem Acquired hammer toe of left foot (7217307132621 103) Other hammer toe(s) (acquired), left foot (M20.42) Active confirmed Encounters Encounter Location Date Provider Diagnosis [facility] [place] [address] [place] [address] 04/01/2024 Rema Blanton Plan Of Treatment Pending Test Test Name Order Date - Ganglion Cyst Injection/Aspiratio n 11/18/2019- Ganglion Cyst Injection/Aspiratio n 12/06/2019 Insurance Providers Payer Name Payer Address Payer Phone Subscriber Number Group Number Insured Name Patient Relationship to Insured Coverage Start Date Coverage End Date [facility] [address] [place] [address] [id number] Yarely Fishman Self - patient is the insured Medical (General) History Medical History History ICD Code Broken bones Chicken pox Surgical History Surgery Date(Month/Year) cyst removal/Ostectomy left foot 0
--- OUTSIDE RECORDS SUMMARY | 2025-01-06 13:43 | XMS_ITS | Clinical Summary ---
Author Organization [facility] Address [address] [address] Phone Care Team Providers Care Plate And Weld Inspector Name Role Phone Annamaria Do MD Primary Care Provider [phone] Allergies No known active allergies Medications levonorgestrel (MIRENA) 20 mcg/24 hr (5 years) intrauterine device 1 Device by Intrauterine route Once every 5 years. Active levonorgestrel-e thinyl estradiol (AVIANE,ALESSE,L ESSINA) 0.1-0.02 mg per tablet Take 1 tablet by mouth daily. 28 tablet 3 8 Active Family History Medical History Relation Comments Hypertension Father Depression Mother Hypertension Mother Diabetes Paternal Uncle Relation Status Comments Father Alive Mother Alive Paternal Uncle Social History Tobacco Use Types Packs/Day Years Used Date Smoking Tobacco: Every Day Cigarettes 1 13 Smokeless Tobacco: Never Alcohol Use Standard Drinks/Week Comments Yes 0 (1 standard drink = 0.6 oz pur e alcohol) 2-3/wk Education Answer Date Recorded Are you interested in more education? Not on david e 10/04/2022 Are you concerned about learning? Not on file 10/04/2022 No 10/04/2022 No 10/04/2022 Digital Access Answer Date Recorded No 11/02/2022 No 11/02/2022 No 11/02/2022 Reliable internet access at home? Not on file 11/02/2022 Device with a working camera? 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 on file Not on file Not on file Last Filed Vital Signs Vital Sign Reading Time Taken Comments Blood Pressure 128/70 07/27/2018 10:06 AM EST Pulse - - Temperature - - Respiratory Rate - - Oxygen Saturation - - Inhaled Oxygen Concentration - - Weight 70.3 kg (155 lb) 07/27/2018 10:06 AM EST Height 170.2 cm (5' 7 ) 04/27/2018 11:48 AM EST Body Mass Index 24.28 04/27/2018 11:48 AM EST Plan of Treatment Health Maintenance Due Date Last Done Comments Adult Td,Tdap Booster 1985 DEPRESSION SCREENING 1998 SMOKING Hx and SMOKELESS TOBACCO SCREENING 11/21/1999 HEPATITIS C SCREENING 2004 HIV ONE-TIME SCREENING (18-6 5 YEARS) 2004 PNEUMOCOCCAL VACCINES (0-49 years) (1 of 2 - PCV) 2005 PAP SMEAR 04/27/2021 04/27/2018, 04/27/2018 COVID-19 VACCINE (3 - 2023-2 5 season) 2024 03/31/2021, 03/03/2021 HEPATITIS A VACCINES Aged Out No long er eligible based on patient's age to complete this topic HIB VACCINES Aged Out No longer eligi ble based on patient's age to complete this topic MENINGOCOCCAL VACCINES (ACWY) Aged Out No longer eligible based on patient's age to complete this topic MENINGOCOCCAL VACCINES (B) Aged Out N o longer eligible based on patient's age to complete this topic Medical Devices Not on file Procedures Procedure Name Priority Date/Time Associated Diagnosis Comments PAP TEST Routine 04/27/2018 12:00 AM EST from Last 3 Months or Most Recently Relevant to Health Maintenance Results * Pap Smear (04/27/2018 12:00 AM EST) 04/27/2018 04/28/2018 11: 55 AM EST Narrative SEE NARRATIVE - 05/06/2018 5:22 [place] [address] Senior Software Systems Engineer: Osiris Ji MD LITHOGRAPHIC STRIPPER Cytology Report FINAL DIAGNOSIS A. PAP SMEAR (SUREPATH) CE: SPECIMEN ADEQUACY: Satisfactory for evaluation; transformation zone present. INTERPRETATION: NEGATIVE FOR INTRAEPITHELIAL LESION OR MALIGNANCY. Bacteria morphologically consistent with Actinomyces species. Electronically Signed Out By: Sandrita PICKARD([facility]) The Pap test is a screening test primarily for squamous cancers and precursors and has associated false-negative and false-positive results. New technologies such as liquid-based preparations may decrease but will not eliminate all false-negative results. Regular sampling and follow-up of unexplained clinical signs and symptoms are recommended to minimize false negative results. PROCEDURES/ADDENDA HPV Testing (Requested) Ordered Date: 04/28/2018 HPV Test Negative for high-risk human papillomavirus types 16, 18, 45 and the Other high risk probe set (Includes 31, 33, 35, 39, 51, 52, 56, 58, 59, 66, 68) by [employer] Onclarity HR-HPV analysis. Clinical correlation is advised. This HPV test was performed at [facility], [address] [place] [address]. This test has been FDA approved for SurePath cervical cytology specimens. The accuracy and precision of this test for all other specimen sources has been verified in the Cytopathology Laboratory of the [facility] and has not been cleared or approved by the U.S. Food and Drug Administration. Clinical correlation is advised. CLINICAL HISTORY Date of Last Menstrual Period: Not Provided Menstrual History: Unknown Contraceptive History: IUD Other Clinical Conditions: Screening Pap Hx of Abnormal pap/hpv+ SPECIMEN SOURCE A: PAP SMEAR (SUREPATH) CE Patient Name: YARELY ALMONTE : 1985 (Age: 32) Sex: F Institution: [facility] Location: [facility] Date of Collection: 04/27/2018 Date of Reported: 05/06/2018 17:22 Results to: Yeimy Berger MSN, BS Yeimy Berger LINE DIRECTOR CYTOLOGY ORDERABLES Final Resu lt SEE NARRATIVE from Last 3 Months or Most Recently Relevant to Health Maintenance Insurance [facility] H[facility] POS Care Teams Plate And Weld Inspector Relationship Specialty Start Date End Date Annamaria Do MD [address] [place] [address] PCP - General Internal Medicine 04/21/18 Additional Source Comments The information contained in this document represents components of the legal health record. It is not the complete legal health record.[facility]
== END 2025-01-06 14:14 | disposition home or self-care (01) ==
LOC: HO.HMCC 13:30
PROVIDERS: PCP Internal Medicine; Visit Provider Internal Medicine
DX: M25.511 Pain in right shoulder (principal); Z00.00 Encounter for general adult medical examination without abnormal findings

== ENCOUNTER → 2025-01-06 13:30 | Outpatient (BNVA) | payer OTHER, SELFPAY | PROVIDERS: PCP Internal Medicine; Visit Provider Internal Medicine | DX: Z00.00 Encounter for general adult medical examination without abnormal findings (principal); M25.511 Pain in right shoulder; R53.83 Other fatigue | CPT/HCPCS: 96127 ==

== ENCOUNTER 2025-02-01 07:35 | Outpatient (REF) | payer OTHER, SELFPAY ==
--- OUTSIDE RECORDS SUMMARY | 2024-04-09 06:30 | XMS_ITS ---
Author Organization [facility] Address [address] [place] [address] Care Team Providers Care Piano Accompanist Name Role Phone Ernestina DICKERSON, Annamaria Primary Care Provider Unavaila Rema Friedman [phone] Encounters Encounter Location Date Provider Diagnosis [address] [address] 04/09/2024 Rema Blanton Plan Of Treatment No Information Progress Notes * [place] ALMONTEleDOB:1985 (39 yo F)Acc No.[id number]:04/09/2024 Progress Notes Patient: Yarely PANG Provider: Dina Blanton DPM :1985 A ge:38 Y S ex:Female Date:04/09/2024 Address:[address] [place], [place] [id number] Pcp:Annamaria Do MD Subjective: * Chief Complaints: * * Medical History: Objective: * Vitals: Assessment: Plan: * Treatment: * Images: * The named appointment provid er may or may not be the originator of this progress note, and it is not deemed complete until electronically signed by the appointment provider. Sign off status: Pending * Provider: Dina Blanton DPM Date: 06/09/2023 Generated for Printi ng/Faxing/eTransmitting on: 0 02/01/2025 07:38 AM EDT
--- OUTSIDE RECORDS SUMMARY | 2025-02-01 07:38 | XMS_ITS | Patient Health Record ---
Author Organization [facility] J[facility] [place] Address [address] [place] [address] Care Team Providers Care Rn Pain Management Name Role Phone Annamaria Do MD Primary Care Provider Unavaila Rema Friedman Unavailable [phone] Reason For Referral No Information Medications Medication [...] Problem Acquired hammer toe of right foot (0359886989841 105) Other hammer toe(s) (acquired), right foot (M20.41) Active confirmed Problem Acquired hammer toe of left foot ([id number] 103) Other hammer toe(s) (acquired), left foot (M20.42) Active confirmed Encounters Encounter Location Date Provider Diagnosis [facility] [address] [place] [address] 04/01/2024 Rema Blanton Plan Of Treatment Pending Test Test Name Order Date - Ganglion Cyst Injection/Aspiratio n 11/18/2019- Ganglion Cyst Injection/Aspiratio n 12/06/2019 Insurance Providers Payer Name Payer Address Payer Phone Subscriber Number Group Number Insured Name Patient Relationship to Insured Coverage Start Date Coverage End Date [facility] [address] [place] [address] [id number] Yarely Fishman Self - patient is the insured Medical (General) History Medical History History ICD Code Broken bones Chicken pox Surgical History Surgery Date(Month/Year) cyst removal/Ostectomy left foot 0
--- OUTSIDE RECORDS SUMMARY | 2025-02-01 07:38 | XMS_ITS | Clinical Summary ---
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 PAP SMEAR (SUREPATH) CE: SPECIMEN ADEQUACY: Satisfactory for evaluation; transformation zone present. INTERPRETATION: NEGATIVE FOR INTRAEPITHELIAL LESION OR MALIGNANCY. Bacteria morphologically consistent with Actinomyces species. Electronically Signed Out By: Sandrita PICKARD([facility]) The Pap test is a screening [...] 52, 56, 58, 59, 66, 68) by [employer] Onclarity HR-HPV analysis. Clinical correlation is advised. This HPV test was performed at [facility], [address] [place] [address]. This test has been FDA approved for SurePath cervical cytology specimens. The accuracy and precision of this test for all other specimen sources has been verified in the Cytopathology Laboratory of the [facility] and has not been cleared or approved by the U.S. Food and Drug Administration. Clinical correlation is advised. CLINICAL HISTORY Date of Last Menstrual Period: Not Provided Menstrual History: Unknown Contraceptive History: IUD Other Clinical Conditions: Screening Pap Hx of Abnormal pap/hpv+ SPECIMEN SOURCE A: PAP SMEAR (SUREPATH) CE Patient Name: YARELY ALMONTE : 1985 (Age: 32) Sex: F Institution: [facility] Location: [facility] Date of Collection: 04/27/2018 Date of Reported: 05/06/2018 17:22 Results to: Yeimy Berger MSN, BS Yeimy Berger CALL OR CONTACT CENTRE COACH CYTOLOGY ORDERABLES Final Resu lt SEE NARRATIVE from Last 3 Months or Most Recently Relevant to Health Maintenance Insurance [facility] H[facility] POS Care Teams Media Monitor Relationship Specialty Start Date End Date Annamaria Do MD [address] [facility] [place] [address] PCP - General Internal Medicine 04/21/18 Additional Source Comments The information contained in this document represents components of the legal health record. It is not the complete legal health record[facility]
[2025-02-01 10:16] LABS: MANUAL DIFF FLAG NO
[2025-02-01 10:19] LABS: Hematocrit 40.1 % (37.0-47.0); Hemoglobin 13.5 g/dl (12.0-16.0); Imm Gran Abs Auto 0.03 X10*3/uL (0.00-0.03); Imm Gran Pct Auto 0.4 % (0.0-0.4); Lymphocytes Absolute Auto 2.1 X10*3/uL (1.2-4.9); Mean Corpuscular HGB Conc 33.7 g/dl (31.0-35.0); Mean Corpuscular Hemoglobin 30.0 pg (27.0-33.0); Mean Corpuscular Volume 89.1 fL (80.0-98.0); NRBC Abs Auto 0.000 X10*3/uL (0.0-0.012); NRBC Pct Auto 0.0 /100WBC (0.0-0.2); Platelet Count 196 X10*3/uL (160-400); Red Blood Count 4.50 X10*6/uL (4.20-5.50); White Blood Count 6.9 X10*3/uL (4.8-10.8)
[2025-02-01 10:47] LABS: Appearance Urine Turbid; Glucose Urine UA Negative (Negative); PH 8.5 (5.0-9.0); Specific Gravity - Urine 1.020 (1.005-1.025); UMIC TRIGGER UA YES
[2025-02-01 11:01] LABS: Alanine Aminotransferase 13 U/L (0-31); Albumin Level 4.3 g/dL (3.5-5.0); Alkaline Phosphatase 52 U/L (39-117); Anion Gap 10 (12-20); Aspartate Amino Transferase 17 U/L (5-31); Blood Urea Nitrogen 13 mg/dL (9-16); Calcium 8.8 mg/dL (8.4-10.2); Carbon Dioxide 26 mmol/L (22-29); Chloride 108 mmol/L (96-108); Cholesterol 189 mg/dL (<200); Estimated Glomerular Filt Rate > 60; HDL Cholesterol 62 mg/dL (>40); Iron 83 mcg/dL (30-160); Percent Iron Saturation 32 % (15-50); Potassium 4.4 mmol/L (3.3-5.1); Sodium 140 mmol/L (135-145); Total Iron Binding Capacity 263 mcg/dL (228-428); Total Protein 6.5 g/dL (6.5-8.0); Triglycerides 41 mg/dL (<150); Unsaturated Iron Binding 180 ug/dL
== END 2025-02-01 07:36 | disposition home or self-care (01) ==
LOC: HO.HMGCLDS 07:35
PROVIDERS: PCP Internal Medicine; Visit Provider Internal Medicine
DX: Z00.00 Encounter for general adult medical examination without abnormal findings (principal); R53.83 Other fatigue; Z13.6 Encounter for screening for cardiovascular disorders; Z13.0 Encounter for screening for diseases of the blood and blood-forming organs and certain disorders involving the immune mechanism
CPT/HCPCS: 36415; 80053; 80061; 81001; 83540; 84443; 85025